=== PATIENT | male | born 2000 | race Caucasian/White ===

== ENCOUNTER 2020-05-05 13:10 | Emergency (ER) | payer OTHER, SELFPAY ==
[2020-05-05] VITALS (13 sets, daily range): BP systolic 143–151; BP diastolic 79–90; PULSE 64–78; RESP 12–19; TEMP 37.1; O2SAT 96–100
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
[2020-05-05] MEDS: HYDROmorphone 2 MG/ML VIAL 0.5 MG IVP (14:12)
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
[2020-05-05] MEDS: Omnipaque 350 MG/ML 100 ML BTL IJ (15:00)
[2020-05-05] MEDS: Normal Saline - Diluent 50 ML VIAL IV (15:01)
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
[2020-05-05 15:45] LABS: Abs Immature Grans 0.05 10^3/uL (0.0-0.06); Absolute Basophil Count 0.06 10^3/uL (0.0-0.2); Absolute Monocyte Count 0.81 10^3/uL (0.1-0.8); Basophils % 0.4; Eosinophils % 0.1; HCT 47.5 % (40.0-50.0); HGB 16.6 g/dL (13.5-17.5); Immature Grans % 0.3; Lymphocytes % 7.5; MCH 30.7 pg (27.0-33.0); MCHC 34.9 % (32.0-36.0); MPV 9.8 fL (8.0-11.0); Monocytes % 5.1; Neutrophils % 86.6; Nucleated RBC 0 %; Platelet Count 223 10^3/uL (130-400); RDW 12.1 % (11.8-14.1); WBC 15.94 10^3/uL (4.4-10.8)
[2020-05-05 15:46] LABS: Bilirubin Negative (Negative); Blood Negative (Negative); Clarity Clear (Clear); Glucose Negative (Negative); Ketones Negative (Negative); Leukocyte Esterase Negative (Negative); Nitrite Negative (Negative); Specific Gravity 1.025 (1.005-1.025); Urobilinogen 0.2 EU/dL (Up TO 0.2)
[2020-05-05 15:47] LABS: Absolute Eosinophil Count 0.02 10^3/uL (0.0-0.7)
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
[2020-05-05] MEDS: Ibuprofen 800 MG TAB PO (16:26)
== END 2020-05-05 16:40 | disposition left against medical advice (07) ==
PROVIDERS: Emergency Provider Registered Nurse Emergency
DX: S42.025A Nondisplaced fracture of shaft of left clavicle, initial encounter for closed fracture (principal); S27.0XXA Traumatic pneumothorax, initial encounter; S27.321A Contusion of lung, unilateral, initial encounter; R06.02 Shortness of breath; V13.0XXA Pedal cycle driver injured in collision with car, pick-up truck or van in nontraffic accident, initial encounter; Y93.55 Activity, bike riding
CPT/HCPCS: 23500; 36415; 74177; 80053; 96374; 99283; 70450; 71260; 72125; 81003; 85025; 99282; J2405; J3490; L0172; L3650